=== PATIENT | female | born 1970 | race Caucasian/White ===

== ENCOUNTER → 2020-04-30 | Outpatient (CLI) | payer OTHER ==
--- NOTE | 2020-04-30 10:21 | 2DMMODE ---
[place] [address] 2 D/M-MODE ECHOCARDIOGRAM Name: TILA PIMENTEL Room: [facility]#: [id number] Admission: 04/30/20 Attend Phys: Delmar Josue, Discharge: Date of : 70 Date of Service: 04/30/20 1020 Report #: [id number] THIS REPORT FOR: cc: JEANCARLOS PATTERSON MD Physician not on staff José Luis Hassan MD [facility] ~ APPROVED REPORT Study performed: 04/30/2020 08:04:49 EXAM: Comprehensive 2D, Doppler, and color-flow Echocardiogram Patient Location: Out-Patient BSA: 1.87 HR: 81 bpm BP: 140/72 mmHg Other Information Study Quality: Fair Indications Chemo 2D Dimensions IVSd: 11.53 (7-11mm) LVDd: 47.40 mm PWd: 9.00 (7-11mm) Ascending Ao: 32.83 (22-36mm) LVDs: 28.50 (25-40mm) Aortic Root: 26.49 mm Volumes Left Atrial Volume (Systole) LA ESV Index: 21.60 mL/m2 Aortic Valve AoV Peak Abran.: 1.90 m/s AO Peak Gr.: 14.45 mmHg LVOT Max P.42 mmHg AO Mean Gr.: 8.59 mmHg LVOT Mean P.45 mmHg LVOT Max V: 1.36 m/s AO V2 VTI: 35.58 cm LVOT Mean V: 0.84 m/s LVOT V1 VTI: 27.95 cm Mitral Valve E/A Ratio: 0.65 [place] [address] 2 D/M-MODE ECHOCARDIOGRAM Name: RUTHANNRADHATILA Room: [facility]#: [id number] Admission: 04/30/20 Attend Phys: Delmar Josue, Discharge: Date of : 70 Date of Service: 04/30/20 1020 Report #: [id number] MV Decel. Time: 250.70 ms MV E Max Abran.: 0.64 m/s MV PHT: 72.70 ms MVA (PHT): 3.03 cm2 TDI E/Lateral E': 4.92 E/Medial E': 9.14 Medial E' Abran.: 0.07 m/s Lateral E' Abran.: 0.13 m/s Pulmonary Valve PV Peak Abran.: 1.30 m/s PV Peak Gr.: 6.81 mmHg Tricuspid Valve RAP Estimate: 5.00 mmHg TR Peak Gr.: 22.03 mmHg RVSP: 27.03 mmHg PA Pressure: 27.03 mmHg Left Ventricle The left ventricle is normal size. endocardium was not well visualized making segmental wall motion analysis difficult There is normal left ventricular wall thickness. Left ventricular systolic function is normal. The left ventricular ejection fraction is within the normal range. LVEF is 55-60%. Grade I - abnormal relaxation pattern. Right Ventricle The right ventricle is normal size. The right ventricular systolic function is normal. Atria The left atrium size is normal. The right atrium size is normal. Aortic Valve The aortic valve is normal in structure. No aortic regurgitation is present. There is no aortic valvular stenosis. Mitral Valve There is mitral annular calcification. Trace mitral regurgitation. No evidence of mitral valve stenosis. Tricuspid Valve The tricuspid valve is normal in structure. [place] [address] 2 D/M-MODE ECHOCARDIOGRAM Name: TILA PIMENTEL Freddy [id number] Admission: 04/30/20 Attend Phys: Delmar Josue, Discharge: Date of : 70 Date of Service: 04/30/20 1020 Report #: [id number] Pulmonic Valve Pulmonic valve is not well visualized. There is no pulmonic valvular regurgitation. Great Vessels The aortic root is normal in size. IVC is normal in size and collapses >50% with inspiration. Pericardium There is no pericardial effusion. <Conclusion> Left ventricular systolic function is normal. The left ventricular ejection fraction is within the normal range. <ELECTRONICALLY SIGNED> By: José Luis Hassan MD, [facility] 04/30/20 1020 1020 1020 José Luis Hassan MD, [facility] /INF
== END ==
LOC: M.CRD 08:00
PROVIDERS: ATTEND Internal Medicine Hematology & Oncology
DX: I08.1 Rheumatic disorders of both mitral and tricuspid valves (principal); C43.9 Malignant melanoma of skin, unspecified; C77.9 Secondary and unspecified malignant neoplasm of lymph node, unspecified; Z79.899 Other long term (current) drug therapy

== ENCOUNTER 2021-04-26 13:03 | Emergency (ER) | payer OTHER ==
[~2021-04-26] VITALS: Ht 152.4 cm; Wt 90.7 kg
[2021-04-26] MEDS ORDERED: DABRAFENIB (13:22)
[2021-04-26] MEDS ORDERED: TAFINLAR50 MG PO (13:23)
[2021-04-26] MEDS ORDERED: MEKINIST0.5 MG PO (13:25)
[2021-04-26] MEDS ORDERED: ADDERALL 10 MG10 MG PO (13:25)
[2021-04-26] MEDS ORDERED: PAXIL20 MG PO (13:25)
[2021-04-26] MEDS ORDERED: XANAX 0.25 MG0.25 MG PO (13:26)
[2021-04-26] MEDS ORDERED: PREDNISOLONE 5 M5 M1 PO (13:27)
[2021-04-26] MEDS ORDERED: CEPHALEXIN500 MG PO (13:51)
[2021-04-26] MEDS ORDERED: VALACYCLOVIR1000 MG PO (13:51)
[2021-04-26 14:26] VITALS: BP 155/58
== END 2021-04-26 14:28 | disposition home or self-care (01) ==
LOC: M.ERS 13:03
DX: L03.114 Cellulitis of left upper limb (principal); B02.9 Zoster without complications; Z88.6 Allergy status to analgesic agent; Z88.5 Allergy status to narcotic agent; Z88.8 Allergy status to other drugs, medicaments and biological substances; Z98.890 Other specified postprocedural states

== ENCOUNTER 2021-06-04 13:49 | Emergency (ER) | payer OTHER ==
[~2021-06-04] VITALS: Ht 152.4 cm; Wt 90.7 kg
[~2021-06-04 13:49] MED LIST: ADDERALL 10 MG10 MG PO; CEPHALEXIN500 MG PO; DABRAFENIB; MEKINIST0.5 MG PO; PAXIL20 MG PO; PREDNISOLONE 5 M5 M1 PO; TAFINLAR50 MG PO; VALACYCLOVIR1000 MG PO; XANAX 0.25 MG0.25 MG PO
[2021-06-04 14:17] LABS: ABSOLUTE LYMPHOCYTES 0.4 thou/uL (0.8-5.3); ABSOLUTE MONOCYTES 0.3 thou/uL (0.0-1.2); ABSOLUTE NEUTROPHILS 2.1 thou/uL (1.6-8.1); BASOPHILS 0.5 %; EOSINOPHILS 0.1 %; HEMATOCRIT 36.6 % (37.0-47.0); HEMOGLOBIN 13.1 gm/dL (12.0-15.0); LYMPHOCYTES 14.8 %; MCH 35.1 pg (26.0-34.0); MCHC 35.7 g/dL (28.0-37.0); MCV 98.2 fL (80.0-100.0); MONOCYTES 10.2 %; MPV 7.3 fl. (7.2-11.1); NUCLEATED RBCS 0 /100WBC; PLATELET COUNT* 152 thou/uL (150-400); POLYS 74.4 %; RBC 3.73 mil/uL (4.20-5.00); RDW-CV 13.4 % (10.5-14.5); WBC 2.9 thou/uL (4.0-11.0)
[2021-06-04 14:24] LABS: CALCIUM 8.7 mg/dL (8.5-10.1); CREATININE 0.9 mg/dL (0.6-1.3); POTASSIUM 3.8 mmol/L (3.5-5.1)
[2021-06-04 14:28] LABS: ALBUMIN 4.2 g/dL (3.4-5.0); TOTAL PROTEIN 8.1 g/dL (6.4-8.2)
[2021-06-04] MEDS ORDERED: AMOXICILLIN 50500 MG PO (15:09)
[2021-06-04] MEDS ORDERED: ZOFRAN ODT4 MG DISSOLVE (15:09)
[2021-06-04] MEDS ORDERED: BUTALB-APAP-CA1 EACH PO (15:09)
[2021-06-04 15:27] VITALS: BP 145/65
== END 2021-06-04 15:27 | disposition home or self-care (01) ==
LOC: M.ERS 13:49
PROVIDERS: Family Medicine
DX: R51.9 Headache, unspecified (principal); R50.9 Fever, unspecified; Z20.822 Contact with and (suspected) exposure to COVID-19; Z88.5 Allergy status to narcotic agent; Z88.6 Allergy status to analgesic agent; Z88.8 Allergy status to other drugs, medicaments and biological substances; Z98.890 Other specified postprocedural states